=== PATIENT | female | born 1970 | race Caucasian/White ===

== ENCOUNTER 2023-09-04 06:55 | Emergency (ER) | payer MEDICAID ==
[2023-09-04 07:27] VITALS: BP 136/110; O2SAT 98
[2023-09-04] MEDS ORDERED: TETANUS/DIPHTHERIA/PERTUSSIS 0.5 ML SYRINGE IM ONE (07:41)
[2023-09-04] MEDS ORDERED: LIDOCAINE-EPINEPH-TETRACAINE 3 ML SYRINGE TOP STA (07:41)
--- NOTE | 2023-09-04 07:44 | ED Physician Documentation ---
PD HPI HEENT - Stated complaint Stated Complaint: DOG BITE - Chief complaint Chief Complaint: Trauma Hd/Nk - History obtained from History obtained from: Patient - Additional information Additional information: Patient is a 52-year-old female with no significant prior medical history presenting for evaluation of a dog bite. Patient is dog sitting her friend's dog. The dog has cancer. She has a good relationship with the dog and states that they even slept in the same bed last night. She knows that the dog can startle and so has been taking extra care.The dog also has cancer. This morning she was up on the couch and patted the couch for the dog to get up on the couch with her when suddenly the dog bit her on the face. She is unsure of her last tetanus. The dog's immunizations are up-to-date. She does not take any medications including blood thinners. She does have a penicillin allergy from childhood. Review of Systems Skin: reports: Laceration (s) Neurologic: denies: Headache PD PAST MEDICAL HISTORY - Past Medical History Past Medical History: Yes Neuro: None Musculoskeletal: Chronic back pain, Other Other Past Medical History: R torn Rotator cuff - Past Surgical History Past Surgical History: No - Present Medications Home Medications: Ambulatory Orders Medication Instructions Recorded Confirmed Cefuroxime Axetil [Cefuroxime] 500 mg PO BID #14 tablet 09/04/23 Lactobacillus Combination No.4 1 each PO DAILY #7 cap 09/04/23 [Probiotic] metroNIDAZOLE [Flagyl] 500 mg PO TID 7 Days #21 tablet 09/04/23 - Allergies Allergies/Adverse Reactions: Allergies Allergy/AdvReac Type Severity Reaction Status Date / Time Penicillins Allergy Unknown Verified 09/04/23 07:26 - Social History Does the pt smoke?: No Smoking Status: Never smoker Does the pt drink ETOH?: Yes ETOH Use: Wine, Beer, Liquor Does the pt have substance abuse?: No - Immunizations Immunizations are current?: Yes - POLST Patient has POLST: No PD ED PE NORMAL - General General: Alert and oriented X 3, No acute distress, Well developed/nourished - HEENT HEENT: PERRL, EOMI, Pharynx benign, Other (2 lacerations of lower lip involving vermilion borders bilaterally, left sided laceration appears to have tissue defect with a piece of tissue Involving the vermilion border that is missing; 2 cm laceration/scratch to left cheek that is superficial and not gaping). No: Atraumatic - Respiratory Respiratory: No respiratory distress - Neuro Neuro: Normal speech PD ED PE EXPANDED - HEENT HEENT Visual: 1 - laceration 2 - laceration 3 - laceration Results - Vitals Vitals: Vital Signs - 24 hr 09/04/23 07:15 Temperature 36.4 C L Heart Rate 83 Respiratory 20 Rate Blood Pressure 136/110 H O2 Saturation 98 Oxygen O2 Source Room air PD Medical Decision Making - ED course ED course: Patient presenting for lacerations to her lip and to cheek after dog bite this morning. Dog's immunizations are up-to-date. Patient's is unsure of her last tetanus was given a tetanus booster. She has 2 significant wounds to the lower lip both involving the vermilion border. One of the wounds has a tissue defect. [place] [facility] [place] graciously would like to see the patient as soon as possible in his office to repair these wounds Given the complexity, particularly with the wound missing some tissue. I offered to the patient to have myself repair her lacerations here in the emergency department with the understanding that she would likely need a revision especially given the wound that Is missing some tissue or to go directly to Dr. Bedoya' office for expert repair. She prefers going to Dr. Bedoya' office and understands that she needs to go there directly. The wound on her cheek does not appear to be gaping to require sutures at this time and appears to be more of a scratch. She does have a penicillin allergy so I have started her on two alternate antibiotics for prophylaxis Per the EMRA antibiotic guide, cefuroxime and Flagyl. Patient understands that her lacerations need repair and understands that she can return to the emergency department With any concerns. Departure - Departure Disposition: 01 Home, Self Care Clinical Impression: Dog bite of vermilion border of lower lip, Laceration of cheek Condition: Good Follow-Up: RONDA BEDOYA [Physician No Access] - (PLEASE GO Directly to Dr. Bedoya office. Do not eat or drink anything. Please go there directly and do not stop anywhere else. Your lip lacerations need to be repaired and Dr. Bedoya is expecting you at his office.) Prescriptions: Cefuroxime Axetil [Cefuroxime] 500 mg PO BID #14 tablet metroNIDAZOLE [Flagyl] 500 mg PO TID 7 Days #21 tablet Lactobacillus Combination No.4 [Probiotic] 1 each PO DAILY #7 cap Comments: YOUR LIP LACERATIONS NEED TO BE REPAIRED PLEASE GO DIRECTLY TO DR. BEDOYA OFFICE in [place]. He is an oral/facial surgeon who I have spoken to this morning and is expecting you in his office first thing this morning so that he can repair your lip lacerations to ensure the best cosmetic outcome. I have updated your tetanus shot. I have also sent prescriptions for 2 antibiotics to [facility] in [place] to prevent any infections from these dog bites. Return to the emergency department with any concerns. Forms: PCP List Discharge Date/Time: 09/04/23 08:10
== END 2023-09-04 08:10 | disposition home or self-care (01) ==
LOC: ED 06:55
DX: S01.459A Open bite of unspecified cheek and temporomandibular area, initial encounter (principal); S01.511A Laceration without foreign body of lip, initial encounter; W54.0XXA Bitten by dog, initial encounter; Z23 Encounter for immunization
CPT/HCPCS: 90471; 99283; 99284